=== PATIENT | female | born 1980 | race African-American/Black ===

== ENCOUNTER 2016-07-12 20:00 | Emergency (ER) | payer OTHER ==
[2016-07-12 20:00] VITALS: BP 177/99
[~2016-07-12 20:00] MED LIST: FERR325T58 PO; HYDR-971 PO; LABE100T3 PO; NAPR500T PO; NIFE30TA2 PO
--- NOTE | 2016-07-12 20:22 | PHYS DOC ---
Past Medical History Past Medical History: Hypertension Past Surgical History: No Surgical History Additional Past Surgical Histo: tubal Alcohol Use: None Drug Use: None Adult General Chief Complaint Chief Complaint: ANKLE PROBLEM HPI HPI Patient is a 35 year old female who presents with a complaint of right ankle pain and swelling secondary to stepping into a pothole approximately 2 hours prior to coming in the emergency room. Patient denies any previous ankle fractures or dislocations. Patient denies any history of bone forming disorders. Patient denies striking her head or loss of consciousness. She denies any additional injuries or concerns at this time. Review of Systems Review of Systems Constitutional: Denies fever or chills [] Eyes: Denies change in visual acuity, redness, or eye pain [] HENT: Denies nasal congestion or sore throat [] Respiratory: Denies cough or shortness of breath [] Cardiovascular: No additional information not addressed in HPI [] GI: Denies abdominal pain, nausea, vomiting, bloody stools or diarrhea [] : Denies dysuria or hematuria [] Musculoskeletal: Denies back pain or joint pain [] Integument: Denies rash or skin lesions [] Neurologic: Denies headache, focal weakness or sensory changes [] Endocrine: Denies polyuria or polydipsia [] Current Medications Current Medications Current Medications Medications (Trade) Dose Ordered Sig/Alis Start Time Stop Time Status Last Admin Dose Admin Acetaminophen/ Hydrocodone Bitart (Lortab 5/325) 1 tab 1X ONCE 07/12/16 20:30 07/12/16 20:31 DC 07/12/16 20:27 1 TAB Allergies Allergies Allergies Coded Allergies Type Severity Reaction Last Updated Verified ibuprofen Allergy Intermediate "itchy throat" 05/22/15 Yes Physical Exam Physical Exam Constitutional: Well developed, well nourished, no acute distress, non-toxic appearance. [] HENT: Normocephalic, atraumatic, bilateral external ears normal, oropharynx moist, no oral exudates, nose normal. [] Eyes: PERRLA, EOMI, conjunctiva normal, no discharge. [] Neck: Normal range of motion, no tenderness, supple, no stridor. [] Cardiovascular:Heart rate regular rhythm, no murmur [] Lungs & Thorax: Bilateral breath sounds clear to auscultation [] Abdomen: Bowel sounds normal, soft, no tenderness, no masses, no pulsatile masses. [] Skin: Warm, dry, no erythema, no rash. [] Back: No tenderness, no CVA tenderness. [] Extremities: Right knee and proximal lower leg are normal in appearance and nontender palpation. Patient has moderate swelling to the lateral malleolus with tenderness to palpation of both medial and lateral malleolus without any instability or crepitus. Patient's right foot is normal appearance. There is tenderness to palpation to the fifth metatarsal at the base and also midshaft. There is no palpable defect, deformity, instability or crepitus. Anterior drawer an talar tilt are stable. Foot is neurovascularly intact with capillary refill less than 2 seconds. Neurologic: Alert and oriented X 3, normal motor function, normal sensory function, no focal deficits noted. [] Psychologic: Affect normal, judgement normal, mood normal. [] Current Patient Data Vital Signs Vital Signs Date Time Temp Pulse Resp B/P Pulse Ox O2 Delivery O2 Flow Rate FiO2 07/12/16 20:00 97.8 86 18 98 Room Air 97.8 EKG EKG [] Radiology/Procedures Radiology/Procedures 3 views patient's right ankle and 3 views of patient's right foot were performed with adequate technique. There is soft tissue swelling seen over the lateral malleolus consistent with physical exam. There is no evidence of acute bony injury to either the ankle or the foot. Course & Med Decision Making Course & Med Decision Making Patient's ankle was wrapped with an Richie wrap and she was placed in an ankle air splint. Patient was fitted for crutches and given demonstration/instructions on how to use the crutches. Patient verbalizes understanding that she will call her primary care doctor's office tomorrow morning to schedule follow-up appointment. [place] Disclaimer [place] Disclaimer This electronic medical record was generated, in whole or in part, using a voice recognition dictation system. Departure Departure Impression: Primary Impression: Right ankle sprain Disposition: 01 HOME, SELF-CARE Condition: GOOD Referrals: NO PCP (PCP) Patient Instructions: Ankle Sprain, [id number], Crutch Use, [id number] Additional Instructions: 1. Take the medication as prescribed. 2. Review the information in the discharge instructions for reasons to return to the emergency room. 3. Please call your primary care doctor tomorrow morning to schedule follow-up appointment to be seen within the next 7-10 days for reexamination. Scripts Diclofenac Sodium (Voltaren-Xr)100 Mg [id number] Tab PO DAILY #21 TAB Ref 3 Prov:TOREY ALANIZ 07/12/16 Hydrocodone/Apap 5-325 (Matheson 5-325 Tablet)1 Each Tablet1 Tab PO PRN Q6HRS PRN PAIN #15 TAB Prov:TOREY ALANIZ 07/12/16 TOREY ALANIZ Jul 12, 2016 20:22
[2016-07-12] MEDS ORDERED: HYDROCODONE/APAP 5/325MG TABLET. PO ONE (20:30)
[2016-07-12] MEDS ORDERED: HYDR-971 PO (20:57)
[2016-07-12] MEDS ORDERED: DICL100T PO (20:57)
--- NOTE | 2016-07-13 08:58 | RAD ---
Indications: Fell one hour ago. Right foot and ankle pain with lateral swelling. Three-view right foot study: No acute fracture or dislocation or osteolytic process is seen. Three-view right ankle study: Lateral soft tissue swelling is seen. No acute fracture or dislocation or osteolytic process is seen. IMPRESSION: No acute fracture.
== END 2016-07-12 21:05 | disposition home or self-care (01) ==
LOC: ER 20:00
DX: S93.401A Sprain of unspecified ligament of right ankle, initial encounter (principal); I10 Essential (primary) hypertension; Z88.8 Allergy status to other drugs, medicaments and biological substances; W17.2XXA Fall into hole, initial encounter; Y93.89 Activity, other specified; Y99.8 Other external cause status; Y92.89 Other specified places as the place of occurrence of the external cause
CPT/HCPCS: 29515; 73610; 73630; 99284-25